=== PATIENT | male | born 1955 | race Caucasian/White ===

== ENCOUNTER → 2018-07-10 | Outpatient (CLI) | payer MEDICAID ==
[2018-07-10 10:43] LABS: FIO2 RA %
== END | disposition home or self-care (01) ==
LOC: LAB 10:26
PROVIDERS: ATTEND Physician Assistant
DX: D75.1 Secondary polycythemia (principal)
CPT/HCPCS: 36600; 82375; 82803

== ENCOUNTER 2019-12-24 22:19 | Emergency (ER) | payer MEDICAID, MEDICARE ==
[~2019-12-24] VITALS: Ht 180.3 cm; Wt 113.1 kg
--- NOTE | 2019-12-24 22:58 | NUR ---
FIRST CONTACT WITH PT. PT REPORTS LUQ PAIN X "SEVERAL DAYS" THAT RADIATES TO CHEST. +NAUSEA/CONSTIPATION/FEVER OF 100.0 TODAY. LBM: "ABOUT TWO DAYS AGO". PT ALSO REPORTS SINGLE EPISODE OF DIAPHORESIS AND CP TWO DAYS AGO, RELIEVED BY REST. HX OF MO WHICH PT STATES "FELT DIFFERENT THAN THIS". ASA THIS AM. LUQ TENDER TO LIGHT PALPATION. BP/SPO2/ECG MONITORING IN PLACE. SINUS YESICA, HR 57 ON MONITOR. DENIES DIZZINESS/WEAKNESS/NAUSEA AT THIS TIME. PWD. NAD NOTED. IV ESTABLISHED, LABS DRAWN. ERP IN FOR INITIAL ASSESSMENT.
[2019-12-24] MEDS ORDERED: ONDANSETRON 2MG/ML, 2ML IVPush ONE (23:00)
[2019-12-24] MEDS ORDERED: MORPHINE SULFATE 4 MG/ML, 1ML IVPush PRN (23:00)
[2019-12-24] MEDS ORDERED: ONDANSETRON 2MG/ML, 2ML ONE (23:02)
[2019-12-24] MEDS ORDERED: MORPHINE SULFATE 4 MG/ML, 1ML ONE (23:03)
[2019-12-24 23:05] LABS: BASOPHILS # (AUTO) 0.05 x10^3/uL (0-0.1); BASOPHILS % (AUTO) 0 % (0-1); EOSINOPHILS # (AUTO) 0.23 x10^3/uL (0-0.4); EOSINOPHILS % (AUTO) 2 % (1-7); LYMPHOCYTES # (AUTO) 2.47 x10^3/uL (1-3.4); LYMPHOCYTES % (AUTO) 21 % (22-44); MD NO; MEAN CORPUSCULAR HEMOGLOBIN 30.1 pg (27.5-34.5); MEAN CORPUSCULAR HGB CONC 33.8 g/dL (33.2-36.2); MEAN PLATELET VOLUME 8.4 fL (7.4-10.4); MONOCYTES # (AUTO) 0.84 x10^3/uL (0.2-0.8); MONOCYTES % (AUTO) 7 % (2-9); NEUTROPHILS # (AUTO) 8.46 x10^3/uL (1.8-6.8); NEUTROPHILS % (AUTO) 70 % (42-75); PLATELET COUNT 184 x10^3/uL (130-400); RED BLOOD COUNT 5.48 x10^6/uL (4.38-5.82); RED CELL DISTRIBUTION WIDTH 13.3 % (9.4-14.8)
--- NOTE | 2019-12-24 23:09 | NUR ---
MEDICATED PER EMAR FOR 1010 ABD PAIN. PT AWARE OF NEED FOR UA. URINAL PROVIDED. ON 2L BY [place] FOR SUPPORT S/P MEDS
[2019-12-24 23:13] LABS: ALANINE AMINOTRANSFERASE 21 U/L (12-78); ALBUMIN 3.9 g/dL (3.4-5.0); ANION GAP 8 mmol/L (5-15); CALCIUM 10.3 mg/dL (8.5-10.1); CHLORIDE 104 mmol/L (98-107); CREATININE 1.19 mg/dL (0.7-1.3)
[2019-12-24 23:18] LABS: ALKALINE PHOSPHATASE 111 U/L (45-117); BILIRUBIN,TOTAL 0.7 mg/dL (0.2-1.0); TOTAL PROTEIN 7.3 g/dL (6.4-8.2); TROPONIN I < 0.015 ng/mL (0.000-0.045)
--- NOTE | 2019-12-24 23:53 | NUR ---
TO CT. UNABLE TO PROVIDE UA
[2019-12-24] MEDS ORDERED: OMNIPAQUE 350 MG/ML, 100ML BOTTLE ONE (23:55)
[2019-12-25 00:10] VITALS: BP 159/83
--- NOTE | 2019-12-25 00:12 | NUR ---
PT RETURNED FROM CT. NAD NOTED. REPORTS LITTLE IMPROVEMENT IN ABD PAIN. REFUSING ADDITIONAL PAIN MEDICATIONS. PT REMINDED OF NEED FOR UA. UP TO STANDING, STEADILY, AT BEDSIDE AND REQUESTED RN STEP AWAY. FALL PRECAUTIONS REVIEWED WITH PT. BP/SPO2/ECG MONITORING IN PLACE. CONT'D SINUS YESICA.
--- NOTE | 2019-12-25 00:28 | NUR ---
UA COLLECTED AND SENT TO LAB
[2019-12-25 00:38] LABS: MICROSCOPIC AUTO
[2019-12-25] MEDS ORDERED: MAALOX/HYOSCYAMINE/LIDOCAINE 45 ML BTL ONE (01:07)
[2019-12-25] MEDS ORDERED: MAALOX/HYOSCYAMINE/LIDOCAINE 45 ML BTL PO ONE (01:30)
--- NOTE | 2019-12-25 01:45 | NUR ---
PT CONTINUES TO REPORT PAIN. REFUSING SECOND MORPHINE. DC EDUCATION PROVIDED, PT DEMONSTRATES UNDERSTANDING. PT TO WALK HOME, "I JUST LIVE A FEW BLOCKS AWAY". REFUSING OFFER FOR TAXI
== END 2019-12-25 02:16 | disposition home or self-care (01) ==
LOC: ED 23:59
DX: K29.00 Acute gastritis without bleeding (principal); R94.31 Abnormal electrocardiogram [ECG] [EKG]
CPT/HCPCS: 36415; 74177; 80053; 81001; 83690; 84484; 85025; 93005; 96374; 96375; 99285; J2270; J2405; Q9967